=== PATIENT | female | born 1975 | race Hispanic/Latino ===

== ENCOUNTER 2018-06-27 06:27 | Observation (INO) | payer MEDICARE ==
[2018-06-05 15:14] VITALS: BMI 27.4
[2018-06-27] MEDS ORDERED: ceFAZolin IV 1 gm in Dextrose 2 GM/100 ML BAG IVPB ONE (07:12)
[2018-06-27] MEDS ORDERED: Bupivacaine 0.5% Inj(30mL) ONE (07:12)
[2018-06-27] MEDS ORDERED: Propofol 10 mg/ml Inj (20 ML) ONE (07:29)
[2018-06-27] MEDS ORDERED: Rocuronium 10 mg/ml (5 ml) ONE (07:30)
[2018-06-27] MEDS ORDERED: ePHEDrine 50 mg/ml Inj ONE (07:30)
[2018-06-27] MEDS ORDERED: Midazolam 2 MG/2 ML VIAL ONE (07:30)
[2018-06-27] MEDS ORDERED: Succinylcholine Chloride 20 mg/ml Syr (5 ml) IV ONE (07:31)
[2018-06-27] MEDS ORDERED: Phenylephrine 10 mg/ml Inj ONE (07:38)
[2018-06-27] MEDS ORDERED: Neostigmine 1:1000 (1 mg/ml) Inj ONE (07:40)
[2018-06-27] MEDS ORDERED: Lactated Ringer's 1,000 ML IV ONE ×2 (08:29→08:55)
[2018-06-27] MEDS ORDERED: Dexamethasone 4 mg/1 ml ONE (09:23)
[2018-06-27] MEDS ORDERED: Vasopressin 20 Units/ml Inj ONE (09:49)
[2018-06-27] MEDS ORDERED: Lactated Ringer's 500 ML IV ONE (10:35)
[2018-06-27] MEDS ORDERED: DiphenhydrAMINE 50 mg/ml Inj IVP PRN (11:57)
[2018-06-27] MEDS: HYDROmorphone 0.5 mg/0.5 ml ISec IVP PRN ×2 (12:10→14:55)
[2018-06-27] MEDS: Lactated Ringer's 1,000 ML IV SCH ×2 (15:03→15:10)
[2018-06-27] MEDS: Oxycodone/Acetaminophen 5/325 mg Tab PO PRN ×2 (17:31→23:27)
--- NOTE | 2018-06-27 20:05 | OP ---
PROCEDURE DATE: 06/27/2018 PREOPERATIVE DIAGNOSES: Symptomatic fibroid uterus, pelvic pain, pressure, and menorrhagia. POSTOPERATIVE DIAGNOSES: 1. Symptomatic fibroid uterus, pelvic pain, pressure, and menorrhagia. 2. Fibroid uterus, right ovarian cyst, and uterosacral ligament endometriosis. OPERATIONS PERFORMED: Robotic assisted myomectomy, hysteroscopy, right ovarian cystectomy, and biopsy of the uterosacral ligaments. SURGEON: Sharri Colorado MD [place] COMPTROLLER: Lacho Chan MD. He was helpful in creating exposure and helpful in obtaining hemostasis, extraction of the specimen, and closure of the patient. The procedure would not have been possible without his assistance. ANESTHESIA: General. ANESTHESIA ADMINISTERED BY: Jessica Banerjee MD. FINDINGS: Operative findings on hysteroscopy were normal uterine cavity, no fibroids noted within the uterine cavity. the operative findings were a 5-cm fibroid, a 4-cm simple ovarian cyst, bilateral uterosacral ligament, endometriosis. ESTIMATED BLOOD LOSS: 50 mL. URINE OUTPUT: Barth catheter put out approximately 300 mL of clear urine. INTRAVENOUS FLUIDS: The patient received 2000 mL of D5 LR intraoperatively. DESCRIPTION OF PROCEDURE: After informed consent was obtained, the patient was taken to the operating room where she was given general anesthesia. She was then prepped and draped in a normal sterile fashion. Attention was then turned to the vagina where a weighted speculum was inserted. The cervix was visualized and grasped with single-tooth tenaculum. The cervix was then gently dilated. The hysteroscope was inserted into the uterine cavity with findings noted above. There were no intracavitary fibroids. Both ostia were visualized. The procedure was then terminated. The HUMI uterine manipulator was inserted in the uterine cavity as a means to manipulate the uterus. Barth catheter was inserted to monitor the patient's urinary output. Attention was then turned to the patient's umbilicus, where an 8-mm incision was made in the umbilical fold. The abdomen was then tented upward and the Veress needle was inserted without difficulty. Placement was confirmed with a fluid-filled syringe. The abdomen was then insufflated to 15 mmHg. An 8-mm robotic port was then introduced in the abdominal cavity and placement was confirmed with a laparoscope. The abdomen was surveyed with the findings noted above. Attention was then turned to approximately 5 cm superior to the right anterior iliac crest. Marcaine was infused. An 8 mm incision was made and an 8 mm robotic port was introduced under direct visualization. A similar procedure was performed on the left. Approximately 10 cm left and lateral to the umbilicus, Marcaine was infused and a 5-mm incision was made and a printer's assistant port was introduced in the abdominal cavity. The instruments used for the surgery were a PK dissector, scissors, and Zachary Suture Cut. The patient was then placed in steep Trendelenburg, the table was lowered and the robot was brought along the patient's side and docked without complication. The instruments were inserted into the abdomen. I then broke scrub and proceeded to the surgical console. Attention was turned to the fundal myoma. Pitressin was injected into the fibroid. A linear incision was made along the fibroid and the fibroid was enucleated using both sharp and blunt dissection. Fibroid was then placed in the cul-de-sac. Attention was then turned to the right ovary, where the ovarian cortex was scored and a cystectomy was performed. The cyst wall was removed using series of both blunt and sharp dissection and coagulation and the ovary was noted to be hemostatic. We then proceeded to closing the uterus. The endometrial layer was closed with 2-0 Vicryl on a barbed suture in a running fashion. The myometrium was then closed with 2-0 Vicryl in a running fashion and lastly the serosa was closed with 2-0 Vicryl in a running fashion. The abdomen was then irrigated. The irrigant was removed with a suction device . Both ovaries and uterus were noted to be hemostatic. There was one serosal myoma approximately 1 cm in size that was scored with the scissors and extracted with a grasper. Both specimens were then sent to Pathology. We then proceeded to undock the robot from the patient. We put a 10-mm Endo bag to the umbilical incision. The fibroid was packed and extracted through the umbilicus. The defect was then closed with 0 Vicryl in an interrupted fashion. The skin was closed with 4-0 Biosyn. The remainder of the incisions were closed with Dermabond. All sponge, lap, needle, and instrument counts were correct x2 and the patient was taken to the recovery room in awake and stable condition. Sharri Colorado MD [facility] # [id number]
[2018-06-28 00:47] VITALS: O2SAT 98
[2018-06-28 05:43] VITALS: TEMP 99.2
[2018-06-28 09:23] VITALS: BP 129/78; PULSE 72; RESP 18
[2018-06-28] MEDS: Oxycodone/Acetaminophen 5/325 mg Tab PO PRN (10:48)
--- NOTE | 2018-06-28 14:34 | CP.PCM.PN ---
Subjective - Date & Time of Evaluation Date of Evaluation: 06/28/18 Time of Evaluation: 14:31 - Subjective Subjective: Pt comfortable without complaints. Pain well controlled. Ambulating well. Tolerating regular diet. Voiding and BM without difficulty. Objective - Vital Signs/Intake and Output Vital Signs (last 24 hours): Temp Pulse Resp BP Pulse Ox 99.2 F 72 18 129/78 98 06/28/18 09:00 06/28/18 09:00 06/28/18 09:00 06/28/18 09:00 06/28/18 09:00 Intake and Output: 06/28/18 06/28/18 06:59 18:59 Intake Total 1200 Output Total 1200 Balance 0 - Medications Medications: Current Medications Acetaminophen (Tylenol 325mg Tab) 650 mg PO Q6 PRN PRN Reason: Pain, moderate (4-7) Last Admin: 06/27/18 22:14 Dose: 650 mg Docusate Sodium (Colace) 100 mg PO BID [facility] Last Admin: 06/28/18 08:55 Dose: 100 mg Duloxetine HCl (Cymbalta) 120 mg PO DAILY [facility] Last Admin: 06/28/18 08:56 Dose: 120 mg Hydromorphone HCl (Dilaudid) 0.5 mg IVP Q10M PRN PRN Reason: Pain, moderate (4-7) Last Admin: 06/27/18 14:55 Dose: 0.5 mg Oxycodone/Acetaminophen (Percocet 5/325 Mg Tab) 1 tab PO Q6 PRN PRN Reason: Pain, moderate (4-7) Stop: 06/30/18 13:48 Last Admin: 06/28/18 10:48 Dose: 1 tab - Constitutional Appears: Well, No Acute Distress - Head Exam Head Exam: NORMAL INSPECTION - Eye Exam Eye Exam: Normal appearance, PERRL - ENT Exam ENT Exam: Mucous Membranes Moist - Respiratory Exam Respiratory Exam: NORMAL BREATHING PATTERN - Cardiovascular Exam Cardiovascular Exam: REGULAR RHYTHM - GI/Abdominal Exam GI & Abdominal Exam: Soft. absent: Distended, Guarding, Tenderness, Rebound Additional comments: Inc port sites all C/D/I. Bandages removed. - Extremities Exam Extremities Exam: Full ROM, Normal Capillary Refill. absent: Calf Tenderness Assessment and Plan - Assessment and Plan (Free Text) Assessment: POD #1 s/p Robot asst laps myomectomy. Pt recovering well. Plan: D/c pt home with postop instructions and precautions. F/U with Dr. Zhu this week
== END 2018-06-28 14:30 | disposition home or self-care (01) ==
LOC: H.OPSURG 06:27 → H.PEDS 13:42
PROVIDERS: ADMIT Obstetrics & Gynecology Gynecology; ATTEND Obstetrics & Gynecology Gynecology
DX: D25.2 Subserosal leiomyoma of uterus (principal); N83.201 Unspecified ovarian cyst, right side; N92.0 Excessive and frequent menstruation with regular cycle; R10.2 Pelvic and perineal pain
CPT/HCPCS: 36415; 58545; 58662; 86850; 86900; 88305; G0378; J0690; J1100; J1170; J1885; J2001; J2250; J2370; J2405; J2704; J2710; J3010; J7120; S2900